=== PATIENT | male | born 1990 | race Caucasian/White ===

== ENCOUNTER 2017-07-02 10:20 | Outpatient (CLI) ==
[2015-12-03 09:02] VITALS: BMI 29.8
== END 2017-07-02 10:21 | disposition home or self-care (01) ==
LOC: FCC-LAB 10:20
PROVIDERS: ATTEND Nurse Practitioner Family
DX: E75.6 Lipid storage disorder, unspecified (principal); I10 Essential (primary) hypertension
CPT/HCPCS: 36415; 80053; 80061; 81001; 85025

== ENCOUNTER 2017-07-09 08:31 | Outpatient (CLI) ==
[2015-12-03 09:02] VITALS: BMI 29.8
--- NOTE | 2017-07-09 10:04 | US ---
EXAM: Renal ultrasound. History: Elevated BUN and creatinine Technique: Multiple sonographic images through the kidneys were obtained. Color duplex Doppler was used to interrogate vascular flow. Findings: Neither ureteral jet was visualized in the bladder. No bladder wall thickening. The right kidney is enlarged measuring 20 cm in length. No hydronephrosis or shadowing calculi. Mul tiple cysts are seen within the right kidney with the largest measuring 4.2 cm. 2.7 cm complicated o r complex cyst with internal echoes. The left kidney is enlarged measuring 19 cm in length. No hydronephrosis or shadowing calculi. Mult iple cysts are identified with the largest measuring 3.8 cm and appears either a complicated or compl ex. Impression: Enlarged multicystic bilateral kidneys suggesting polycystic kidney disease. Some of the cysts appear complicated or complex. Recommend further evaluation with CT or MRI renal mass andrews funez
== END 2017-07-09 08:32 | disposition home or self-care (01) ==
LOC: RAD 08:31
PROVIDERS: ATTEND Nurse Practitioner Family
DX: R79.9 Abnormal finding of blood chemistry, unspecified (principal); R79.89 Other specified abnormal findings of blood chemistry; Z84.1 Family history of disorders of kidney and ureter
CPT/HCPCS: 76770

== ENCOUNTER 2017-07-16 13:59 | Outpatient (CLI) ==
[2015-12-03 09:02] VITALS: BMI 29.8
--- NOTE | 2017-07-16 17:27 | MRI ---
EXAM: Brain MRI without contrast. HISTORY: Hypertension. COMPARISON: None. TECHNIQUE: Multiplanar, multisequence MR images were acquired of the brain without contrast. FINDINGS: The midline structures are central the craniocervical junction is unremarkable. The ventr icles and sulci are normal in size and configuration. There are no abnormal extra-axial fluid collec tions. The brain parenchyma has no restricted diffusion to suggest acute hypoperfusion or infarction. Faint FLAIR parieto-occipital hyperintensities are present that are considered within normal variation. No abnormal T2 or FLAIR hyperintensities and no abnormal foci of dark gradient echo signal are present. The corpus callosum is normal. The pituitary gland is unremarkable. There are no intraorbital masses. A moderate mucous retention cyst is present in the sphenoid sinus and there is focal mucosal thickening in the left basisphenoid air cell. There is minor scattered mu cosal thickening in the ethmoid air cells bilaterally. Bilateral maxillary sinus mucous retention cy sts are also present. There is minor leftward deviation of the nasal septum. There is mucosal thick ening and a small amount of fluid opacifying a mild to moderate number of the left mastoid air cells. Flow voids are present in the major intracranial arteries and dural venous sinuses. IMPRESSION: 1. No intracranial mass, hemorrhage or acute cerebral infarct. 2. Mild chronic sinus disease.
== END 2017-07-16 14:00 | disposition home or self-care (01) ==
LOC: RAD 13:59
PROVIDERS: ATTEND Nurse Practitioner Family
DX: Q61.3 Polycystic kidney, unspecified (principal); I10 Essential (primary) hypertension

== ENCOUNTER 2017-07-19 09:12 | Outpatient (CLI) ==
[2015-12-03 09:02] VITALS: BMI 29.8
--- NOTE | 2017-07-19 12:46 | MRI ---
EXAM: [place] MR angiogram without contrast. HISTORY: Hypertension and polycystic kidney disease. COMPARISON: Brain MRI 07/16/2017. TECHNIQUE: Axial T2 weighted images were acquired of the brain and 3-D [id number] MR angiography was acquired through the [place] without contrast. FINDINGS: There are no flow-limiting stenoses in the right internal carotid artery from the distal c ervical segment to the proximal supraclinoid segment. There is moderate to marked narrowing of the d istal supraclinoid segment flow void to the bifurcation. The right posterior communicating artery is present. There is a short 1-2 mm focal discontinuity at the origin and proximal 1-2 mm of the right m iddle cerebral artery which is not demonstrated on the axial T2W images and is considered artifactual probably due to turbulent flow. The right M1 segment has no flow-limiting stenoses to the bifurcati on. The right M1 segment is mildly small after giving off the anterior temporal artery which is larg e. The right anterior cerebral artery has a moderate to marked narrowing of the flow void just beyo nd the origin that extends 2-3 mm and distally is of normal caliber. The anterior communicating sepideh ry is partially visualized on the 3-D [id number] MR images and is well seen on the axial T2W imag es and is normal.. These findings may be due to turbulent flow producing dephasing of the spins or t echnical artifact. The right anterior cerebral artery A2 segment has e no significant stenoses. Th ere is a partially visualized right posterior communicating artery. The left internal carotid artery has no flow-limiting stenoses from the distal cervical segment to th e intracranial bifurcation. The proximal left A1 and M1 segments are poorly visualized on the right. However, the M1 segment is of normal caliber. On the axial T2W sequence to its bifurcation.. Ther e is a high-grade stenosis at the origin and proximal 5 mm of the left anterior cerebral artery A1 se gment that is considered probably artifactual due to turbulent flow. There is focal discontinuity be tween the left A1 and A2 segments on the MRA sequence but no discontinuities are present on the axial T2W images. There is a partially visualized left posterior communicating artery. The right vertebral artery is dominant to the left and both are without flow-limiting stenoses to the vertebral basilar junction. The left vertebral artery is small. The basilar artery has no hemodyna mically significant stenoses to its bifurcation. Both superior cerebellar arteries are patent. Ther e are no flow-limiting stenoses in the posterior cerebral arteries to the bifurcations into the media l and lateral branches. There are high-grade stenoses near occlusions at the origins of the left pos terior artery medial lateral branches and a moderate stenosis at the origin of the right posterior ce rebral artery, lateral branch. No aneurysms or vascular malformations are identified in the [place]. However, small or subtle aneurysms may be missed given the technical limitations of this exam. IMPRESSION: There are probably no hemodynamically significant stenoses or aneurysms in the [place] on this exam. However, technical limitations are present and focal hemodynamically significant stenoses or small aneurysms may be missed. If this is a significant concern, [place] CTA may be consid ered to further define the anatomy.
== END 2017-07-19 09:13 | disposition home or self-care (01) ==
LOC: RAD 09:12
PROVIDERS: ATTEND Nurse Practitioner Family
DX: Q61.3 Polycystic kidney, unspecified (principal); I10 Essential (primary) hypertension

== ENCOUNTER 2017-07-23 09:11 | Outpatient (CLI) ==
[2015-12-03 09:02] VITALS: BMI 29.8
--- NOTE | 2017-07-23 11:44 | MRI ---
EXAM: MRI of the abdomen with and without contrast History: Polycystic kidney Comparison: Renal ultrasound 07/09/2017 Technique: Multiplanar, multisequence MRI images through the abdomen were obtained with and without t he administration of IV contrast. 20 mL of of Omniscan was given intravenously. Findings: Lung bases are free of consolidation. Bone marrow signal is unremarkable. Enlarged bilateral kidneys with numerous simple and minimally complicated cysts. The largest cyst in the right kidney measures 5.1 cm and the largest cyst in the left kidney measures 4.6 cm. No enhanc ing renal masses. No hydronephrosis. No dilated loops of bowel. No free air. The spleen is unrema rkable. No gallstones identified. No intrahepatic or extrahepatic biliary ductal dilatation. The a drenal glands are unremarkable. Pancreas is within normal limits. A few tiny 304 mm simple hepatic cysts. No enhancing liver lesions. Portal veins are patent. No lymphadenopathy. There is no signal drop out within the liver to suggest fatty infiltration. Impression: 1. Enlarged bilateral kidneys with innumerable simple and minimally complicated cysts consistent wit h polycystic kidney disease. There are no suspicious renal lesions. No additional follow-up is bryson mmended. 2. A few tiny simple hepatic cysts.
== END 2017-07-23 09:12 | disposition home or self-care (01) ==
LOC: RAD 09:11
PROVIDERS: ATTEND Nurse Practitioner Family
DX: Q61.3 Polycystic kidney, unspecified (principal)

== ENCOUNTER 2018-01-04 10:47 | Outpatient (CLI) ==
[2015-12-03 09:02] VITALS: BMI 29.8
== END 2018-01-04 10:48 | disposition home or self-care (01) ==
LOC: FCC-LAB 10:47
PROVIDERS: ATTEND Family Medicine
DX: E78.2 Mixed hyperlipidemia (principal)
CPT/HCPCS: 36415; 80053; 80061